=== PATIENT | male | born 1945 | race Caucasian/White ===

== ENCOUNTER → 2022-03-22 | Outpatient (CLI) | payer MEDICARE, OTHER ==
[~2022-03-22] MED LIST: ABILIFY 5 MG TAB5 MG PO; ALDACTONE25 MG PO; COLACE 100MG C100 MG PO; COREG 12.5MG12.5 MG PO; COREG6.25 MG PO; DIGOXIN125 MCG PO; ECOTRIN81 MG PO; IMDUR ER TAB 3030 MG PO; IPRATROPIU0.2 MG/1 M INH; JANUVIA100 MG PO; LANOXIN TAB0.125 MG PO; LASIX20 MG PO; LASIX40 MG PO; LEVAQUIN500 MG PO; LEVEMIR FL100 UNIT/1 SQ; LEVEMIR100 UNIT/1 SQ; MEGACE SUSP40 MG/M1 PO; NORCO 7.5-3251 EACH PO; NOVOLOG 10100 UNITS1 INJ; NOVOLOG MI100 UNIT/1 SQ; PLAVIX 75 MG TA75 MG PO; PRINIVIL5 MG PO; PROSCAR5 MG PO; PROTONIX40 MG PO; SYNTHROID100 MCG PO; SYNTHROID125 MCG PO; TRICOR145 MG PO; VENTOLIN HFA 66.7 GM INH
== END ==
LOC: US 09:21
DX: D72.819 Decreased white blood cell count, unspecified (principal); D69.6 Thrombocytopenia, unspecified; K80.80 Other cholelithiasis without obstruction
CPT/HCPCS: 76705